=== PATIENT | male | born 1975 | race African-American/Black ===

== ENCOUNTER 2019-06-07 22:41 | Emergency (ER) | payer OTHER ==
[~2019-06-07] VITALS: Ht 165.1 cm; Wt 81.7 kg
[2019-06-07] MEDS ORDERED: CYCLOBENZAPRINE5 MG PO (23:36)
[2019-06-07] MEDS ORDERED: NEURONTIN 300300 M1 PO (23:36)
[2019-06-07] MEDS ORDERED: VALIUM5 MG PO (23:37)
[2019-06-08] MEDS ORDERED: TYLENOL325 MG PO (01:19)
[2019-06-08] MEDS ORDERED: ROBAXIN 750 MG750 MG PO (01:19)
[2019-06-08 02:00] VITALS: BP 120/87
== END 2019-06-08 02:00 | disposition home or self-care (01) ==
LOC: ER 22:41
DX: S16.1XXA Strain of muscle, fascia and tendon at neck level, initial encounter (principal); M25.561 Pain in right knee; Z89.612 Acquired absence of left leg above knee; V89.2XXA Person injured in unspecified motor-vehicle accident, traffic, initial encounter; Y93.89 Activity, other specified; Y92.89 Other specified places as the place of occurrence of the external cause; Y99.8 Other external cause status